=== PATIENT | male | born 1955 | race Caucasian/White ===

== ENCOUNTER 2018-09-07 06:34 | Inpatient (IN) | payer MEDICARE, BC ==
[2018-08-28 10:58] VITALS: BP 143/85
[~2018-09-07] VITALS: Ht 177.8 cm; Wt 113.0 kg
[~2018-09-07 06:34] MED LIST: ASPI-496 PO; BACITRACIN 50,000 UNIT ONE; BUPIVACAINE/PF-EPI 0.5% 1:200K ONE; LISI-170 PO; MAGN250T8 PO; MICROFIBRILLAR COLLAGEN 1 GM TP ONE; MORP-52 PO; THROMBIN 20,000 UNIT VIAL TP ONE; THROMBIN 5,000 UNIT VIAL TP ONE
[2018-09-07] MEDS ORDERED: LACTATED RINGERS 1,000 ML IV SCH (07:13)
[2018-09-07] MEDS ORDERED: GABAPENTIN 300 MG CAPSULE PO ONE (07:30)
[2018-09-07] MEDS ORDERED: ACETAMINOPHEN 500 MG TABLET PO ONE (07:30)
[2018-09-07] MEDS ORDERED: MIDAZOLAM 1 MG/ML, 2ML ONE (08:00)
[2018-09-07] MEDS ORDERED: FENTANYL PF 250 MCG/5ML ONE ×2 (08:00→10:37)
[2018-09-07] MEDS ORDERED: NEOSTIGMINE 1 MG/ML, 10ML ONE (08:02)
[2018-09-07] MEDS ORDERED: ROCURONIUM 10MG/ML,5ML ONE (08:02)
[2018-09-07] MEDS ORDERED: GLYCOPYRROLATE 0.2MG/1ML, 5ML ONE (08:02)
[2018-09-07] MEDS ORDERED: CEFAZOLIN 1,000 MG ONE (08:02)
[2018-09-07] MEDS ORDERED: PROPOFOL 10 MG/ML, 20ML ONE (08:02)
[2018-09-07] MEDS ORDERED: SUCCINYLCHOLINE 20 MG/ML, 10ML ONE (08:02)
[2018-09-07] MEDS ORDERED: PROPOFOL 50 ML ONE ×3 (08:03→10:57)
[2018-09-07] MEDS ORDERED: PHENYLEPHRINE 10 MG/ML ONE (09:23)
[2018-09-07] MEDS ORDERED: PROMETHAZINE 25 MG/ML, 1ML IV PRN (09:30)
[2018-09-07] MEDS ORDERED: PROMETHAZINE 12.5 MG SUPP PR PRN (09:30)
[2018-09-07] MEDS ORDERED: ONDANSETRON ODT 8 MG PO PRN (09:30)
[2018-09-07] MEDS ORDERED: FENTANYL PF 100 MCG/2ML IV PRN (09:30)
[2018-09-07] MEDS ORDERED: ONDANSETRON 2MG/ML, 2ML IV PRN (09:30)
[2018-09-07] MEDS ORDERED: PROMETHAZINE 25 MG/ML, 1ML IM PRN ×3 (09:30→12:30)
[2018-09-07] MEDS ORDERED: hydrALAzine 20 MG/ML, 1ML IV PRN (09:30)
[2018-09-07] MEDS ORDERED: PROMETHAZINE 25 MG SUPP PR PRN (09:30)
[2018-09-07] MEDS ORDERED: LABETALOL 5MG/ML, 20ML IV PRN (09:30)
[2018-09-07] MEDS ORDERED: MEPERIDINE/PF 25MG/0.5ML IVPush PRN (09:30)
[2018-09-07] MEDS ORDERED: MORPHINE SULFATE 4 MG/ML, 1ML IVPush PRN (09:30)
[2018-09-07] MEDS ORDERED: OXYcodone 5 MG/5 ML ORAL.SOL UDC PO PRN (09:30)
[2018-09-07] MEDS ORDERED: HYDROmorphone 2 MG/ML, 1ML ONE (12:22)
[2018-09-07] MEDS ORDERED: FENTANYL PF 100 MCG/2ML ONE (12:22)
[2018-09-07] MEDS ORDERED: OXYcodone 5 MG/5 ML ORAL.SOL UDC ONE (12:22)
[2018-09-07] MEDS ORDERED: SENNA/DOCUSATE TABLET PO PRN (12:30)
[2018-09-07] MEDS ORDERED: ONDANSETRON 2MG/ML, 2ML IVPush PRN (12:30)
[2018-09-07] MEDS ORDERED: PHARMACY MAY ADJ FOR RENAL FX MC PRN (12:30)
[2018-09-07] MEDS ORDERED: HYDROcodone/APAP 5/325 TABLET PO PRN (12:30)
[2018-09-07] MEDS ORDERED: OXYcodone/APAP 5/325MG TABLET PO PRN (12:30)
[2018-09-07] MEDS ORDERED: DIPHENHYDRAMINE 50 MG/ML, 1ML IVPush PRN (12:30)
[2018-09-07] MEDS ORDERED: BISACODYL 10 MG SUPP PR PRN (12:30)
[2018-09-07] MEDS ORDERED: MAGNESIUM HYDROXIDE 8%, 30ML UDC PO PRN (12:30)
[2018-09-07] MEDS ORDERED: morphine SULFATE 10 MG/ML, 1ML IVPush PRN (12:30)
[2018-09-07] MEDS ORDERED: METHOCARBAMOL 750 MG TABLET ONE (12:33)
[2018-09-07] MEDS: HYDROmorphone 2 MG/ML, 1ML IVPush PRN ×3 (12:39→13:01)
[2018-09-07] MEDS: METHOCARBAMOL 750 MG TABLET PO PRN ×2 (13:00→23:14)
[2018-09-07 13:30] VITALS: BP 134/77
[2018-09-07] MEDS: D5%-0.9% NACL+KCL 20MEQ 1,000 ML IV SCH ×2 (14:45→22:50)
[2018-09-07] MEDS: CYCLOBENZAPRINE 10 MG TABLET PO PRN (16:02)
[2018-09-07] MEDS: HYDROcodone/APAP 10/325 MG TABLET PO PRN ×2 (17:10→22:37)
[2018-09-07] MEDS: CEFAZOLIN PMX 1GM/50ML 50 ML IVPB SCH (17:11)
[2018-09-07 20:05] VITALS: BP 167/79
[2018-09-07] MEDS: SODIUM CHLORIDE FLUSH 10ML SYR IVF SCH (20:55)
[2018-09-07] MEDS: LISINOPRIL 20 MG TABLET PO SCH (20:55)
[2018-09-08 00:27] VITALS: BP 178/78
[2018-09-08] MEDS: CEFAZOLIN PMX 1GM/50ML 50 ML IVPB SCH (01:32)
[2018-09-08] MEDS: HYDROcodone/APAP 10/325 MG TABLET PO PRN ×4 (02:42→19:25)
[2018-09-08 04:11] VITALS: BP 152/77
[2018-09-08 04:56] LABS: BASOPHILS % (AUTO) 0 % (0-1); EOSINOPHILS # (AUTO) 0.04 x10^3/uL (0-0.4); EOSINOPHILS % (AUTO) 1 % (1-7); LYMPHOCYTES # (AUTO) 1.12 x10^3/uL (1-3.4); LYMPHOCYTES % (AUTO) 15 % (22-44); MD NO; MEAN CORPUSCULAR HEMOGLOBIN 30.1 pg (27.5-34.5); MEAN CORPUSCULAR HGB CONC 32.4 g/dL (33.2-36.2); MEAN CORPUSCULAR VOLUME 92.7 fL (81-97); MEAN PLATELET VOLUME 8.7 fL (7.4-10.4); MONOCYTES # (AUTO) 0.48 x10^3/uL (0.2-0.8); MONOCYTES % (AUTO) 7 % (2-9); NEUTROPHILS # (AUTO) 5.77 x10^3/uL (1.8-6.8); NEUTROPHILS % (AUTO) 78 % (42-75); PLATELET COUNT 136 x10^3/uL (130-400); RED BLOOD COUNT 4.24 x10^6/uL (4.38-5.82); RED CELL DISTRIBUTION WIDTH 12.5 % (9.4-14.8)
[2018-09-08] MEDS: CYCLOBENZAPRINE 10 MG TABLET PO PRN ×2 (05:05→13:50)
[2018-09-08 05:07] LABS: ANION GAP 6 mmol/L (5-15); CALCIUM 8.2 mg/dL (8.5-10.1); CHLORIDE 105 mmol/L (98-107)
[2018-09-08 05:08] LABS: CREATININE 0.91 mg/dL (0.7-1.3)
[2018-09-08] MEDS: ENOXAPARIN 40 MG/0.4 ML SQ SCH (05:37)
[2018-09-08 08:06] VITALS: BP 144/76
[2018-09-08] MEDS: MAGNESIUM OXIDE 400 MG TABLET PO SCH (09:00)
[2018-09-08] MEDS: METHOCARBAMOL 750 MG TABLET PO PRN ×2 (09:00→19:25)
[2018-09-08] MEDS: SODIUM CHLORIDE FLUSH 10ML SYR IVF SCH ×2 (09:01→20:32)
[2018-09-08] MEDS: D5%-0.9% NACL+KCL 20MEQ 1,000 ML IV SCH ×2 (10:00→18:55)
[2018-09-08 13:49] VITALS: BP 144/78
[2018-09-08 18:30] VITALS: BP 146/77
[2018-09-08] MEDS: LISINOPRIL 20 MG TABLET PO SCH (20:37)
[2018-09-09] MEDS: ENOXAPARIN 40 MG/0.4 ML SQ SCH (01:20)
[2018-09-09] MEDS: D5%-0.9% NACL+KCL 20MEQ 1,000 ML IV SCH (01:21)
[2018-09-09 02:06] VITALS: BP 135/77
[2018-09-09] MEDS: HYDROcodone/APAP 10/325 MG TABLET PO PRN ×3 (03:44→12:28)
[2018-09-09] MEDS: METHOCARBAMOL 750 MG TABLET PO PRN (03:44)
[2018-09-09 05:41] LABS: BASOPHILS # (AUTO) 0.02 x10^3/uL (0-0.1); BASOPHILS % (AUTO) 0 % (0-1); EOSINOPHILS # (AUTO) 0.08 x10^3/uL (0-0.4); EOSINOPHILS % (AUTO) 1 % (1-7); LYMPHOCYTES # (AUTO) 0.75 x10^3/uL (1-3.4); LYMPHOCYTES % (AUTO) 10 % (22-44); MD NO; MEAN CORPUSCULAR HEMOGLOBIN 31.7 pg (27.5-34.5); MEAN CORPUSCULAR HGB CONC 33.9 g/dL (33.2-36.2); MEAN CORPUSCULAR VOLUME 93.4 fL (81-97); MEAN PLATELET VOLUME 8.6 fL (7.4-10.4); MONOCYTES # (AUTO) 0.63 x10^3/uL (0.2-0.8); MONOCYTES % (AUTO) 8 % (2-9); NEUTROPHILS # (AUTO) 6.16 x10^3/uL (1.8-6.8); NEUTROPHILS % (AUTO) 81 % (42-75); PLATELET COUNT 123 x10^3/uL (130-400); RED BLOOD COUNT 4.31 x10^6/uL (4.38-5.82)
[2018-09-09 05:44] LABS: ANION GAP 3 mmol/L (5-15); CALCIUM 8.5 mg/dL (8.5-10.1); CHLORIDE 109 mmol/L (98-107); CREATININE 0.95 mg/dL (0.7-1.3)
[2018-09-09] MEDS ORDERED: THROMBIN 5,000 UNIT VIAL TP ONE (06:11)
[2018-09-09 07:57] VITALS: BP 111/56
[2018-09-09] MEDS: MAGNESIUM OXIDE 400 MG TABLET PO SCH (08:08)
[2018-09-09] MEDS: SODIUM CHLORIDE FLUSH 10ML SYR IVF SCH (08:08)
[2018-09-09 08:19] VITALS: BP 157/77
[2018-09-09] MEDS ORDERED: ENOXAPARIN 40 MG/0.4 ML SQ ONE (09:00)
[2018-09-09] MEDS ORDERED: HYDR-3307 PO (09:59)
[2018-09-09] MEDS ORDERED: METH750T87 PO (10:01)
[2018-09-09] MEDS ORDERED: CIPR500T87 PO (10:07)
[2018-09-09] MEDS: CYCLOBENZAPRINE 10 MG TABLET PO PRN (12:28)
[2018-09-09 12:37] VITALS: BP 145/70
== END 2018-09-09 13:15 | disposition home or self-care (01) | DRG 455 ==
LOC: ORIP 06:34 → 4NOR 13:20
PROVIDERS: ADMIT Neurological Surgery; ATTEND Neurological Surgery
PROC: 0SB20ZZ Excision of Lumbar Vertebral Disc, Open Approach (ICD-10-PCS; 2018-09-07)
PROC: 0SG0071 Fusion of Lumbar Vertebral Joint with Autologous Tissue Substitute, Posterior Approach, Posterior Column, Open Approach (ICD-10-PCS; 2018-09-07)
PROC: 01NB0ZZ Release Lumbar Nerve, Open Approach (ICD-10-PCS; 2018-09-07)
PROC: 4A11X4G Monitoring of Peripheral Nervous Electrical Activity, Intraoperative, External Approach (ICD-10-PCS; 2018-09-07)
PROC: 0SG00A0 Fusion of Lumbar Vertebral Joint with Interbody Fusion Device, Anterior Approach, Anterior Column, Open Approach (ICD-10-PCS; principal; 2018-09-07 10:00)
DX: M48.061 Spinal stenosis, lumbar region without neurogenic claudication (principal); M47.816 Spondylosis without myelopathy or radiculopathy, lumbar region; I10 Essential (primary) hypertension; M19.90 Unspecified osteoarthritis, unspecified site; G89.29 Other chronic pain; Z88.8 Allergy status to other drugs, medicaments and biological substances; Z98.1 Arthrodesis status; Z82.61 Family history of arthritis; Z82.49 Family history of ischemic heart disease and other diseases of the circulatory system
CPT/HCPCS: 36415; 72100; 72131; 80048; 85025; 86850; 86900; C1713; C1776; G0378; J0690; J1170; J1650; J2250; J2405; J2704; J2710; J3010; C1760; C1762; C1763; C1769; J0330; J2370; J3480; J7120